=== PATIENT | female | born 1965 | race Caucasian/White ===

== ENCOUNTER 2020-12-01 15:51 | Emergency (ER) | payer SELFPAY ==
[2020-12-01 15:56] VITALS: BP 114/59; PULSE 73; RESP 18; TEMP 98.1
--- NOTE | 2020-12-01 16:39 | ED ---
Recheck HPI - General Source: patient Mode of arrival: ambulatory Limitations: no limitations <Vahid Orourke - Last Filed: 12/01/20 16:38> <Amy Dumont - Last Filed: 12/02/20 01:24> - General Chief Complaint: Recheck/Abnormal Lab/Rx Stated Complaint: Covid Test Time Seen by Provider: 12/01/20 16:00 - History of Present Illness Initial Comments: 55-year-old female presenting for covert testing. She needs this for international travel. No other complaints. (Vahid Orourke) - Related Data Allergies Allergy/AdvReac Type Severity Reaction Status Date / Time No Known Allergies Allergy Verified 12/01/20 15:56 Review of Systems ROS Other: All systems not noted in ROS Statement are negative. <Vahid Orourke - Last Filed: 12/01/20 16:38> ROS Other: All systems not noted in ROS Statement are negative. <Amy Dumont - Last Filed: 12/02/20 01:24> ROS Statement: Those systems with pertinent positive or pertinent negative responses have been documented in the HPI. Past Medical History Past Medical History: No Reported History History of Any Multi-Drug Resistant Organisms: None Reported Past Surgical History: No Surgical Hx Reported Past Psychological History: No Psychological Hx Reported Smoking Status: Never smoker Past Alcohol Use History: None Reported Past Drug Use History: None Reported <Vahid Orourke - Last Filed: 12/01/20 16:38> General Exam Limitations: no limitations General appearance: alert, in no apparent distress Head exam: Present: atraumatic Eye exam: Present: normal appearance ENT exam: Present: normal exam Neck exam: Present: normal inspection Respiratory exam: Present: normal lung sounds bilaterally Cardiovascular Exam: Present: regular rate, normal rhythm, normal heart sounds Extremities exam: Present: normal inspection Back exam: Present: normal inspection Neurological exam: Present: alert, oriented X3 Psychiatric exam: Present: normal affect, normal mood Skin exam: Present: intact, normal color <Vahid Orourke - Last Filed: 12/01/20 16:38> Course Vital Signs 12/01/20 15:54 Temperature 98.1 F Pulse Rate 73 Respiratory 18 Rate Blood Pressure 114/59 O2 Sat by Pulse 98 Oximetry Medical Decision Making <Vahid Orourke - Last Filed: 12/01/20 16:38> <Amy Dumont - Last Filed: 12/02/20 01:24> - Medical Decision Making negative Covid (Vahid Orourke) I was available for consultation in the emergency department. The history and physical exam were done by the midlevel provider. I was consulted for this patients care. I reviewed the case with the midlevel provider and based on their presentation of the patient, I agree with the assessment, medical decision making and plan of care as documented. Chart was dictated using [employer] dictation software. Attempts were made to correct any dictation errors however some typographical errors may persist. Patient was seen during a national state of emergency due to the Covid-19 pandemic. (Amy Dumont) - Lab Data Lab Results 12/01/20 Range/Units 16:03 Coronavirus (PCR) Not Detected (Not Detectd) Disposition Is patient prescribed a controlled substance at d/c from ED?: No Time of Disposition: 16:39 <Vahid Orourke - Last Filed: 12/01/20 16:38> <Amy Dumont - Last Filed: 12/02/20 01:24> Clinical Impression: Lab test negative for COVID-19 virus Disposition: HOME SELF-CARE Condition: Stable Referrals: None,Stated [Primary Care Provider] - 1-2 days
== END 2020-12-01 16:46 | disposition home or self-care (01) ==
LOC: EC 15:51
DX: Z20.822 Contact with and (suspected) exposure to COVID-19 (principal)
CPT/HCPCS: 87635; 99282